=== PATIENT | female | born 1980 | race Caucasian/White ===

== ENCOUNTER 2016-12-02 08:00 | Emergency (ER) | payer OTHER ==
[~2016-12-02] VITALS: Ht 175.3 cm; Wt 113.0 kg
[~2016-12-02 08:00] MED LIST: IBUP-1542 PO
[2016-12-02 08:08] VITALS: Ht 175.3 cm; Wt 113.0 kg
--- NOTE | 2016-12-02 08:59 | ERD ---
ER Documentation Chief Complaint Date/Time DATE: 12/02/16 TIME: 08:54 Chief Complaint LT 2ND FINGER LACERATION ON KNUCKLE SUSTAINED WHILE CUTTING BREAD THIS AM HPI 36-year-old female coming in complaining of a laceration to her left index finger over the dorsal aspect of PIP joint. Patient states she was cutting bread when she cut her skin with knife. Does not recall her last tetanus shot. Right-hand dominant. Denies any numbness or tingling to the distal tip. Is able to move her fingers without difficulty. ROS All systems reviewed and are negative except as per history of present illness. Medications Home Meds Active Scripts Ibuprofen* (Motrin*) 600 Mg Tab, 600 MG PO Q6, #14 TAB Prov:AYAH JOYA MD 11/19/15 Allergies Allergies: Coded Allergies: No Known Allergy (Unverified , 11/19/15) PMhx/Soc Medical and Surgical Hx: pt denies Medical Hx, pt denies Surgical Hx Hx Alcohol Use: Yes Hx Substance Use: No Hx Tobacco Use: No Physical Exam Vitals Vital Signs Date Time Temp Pulse Resp B/P Pulse Ox O2 Delivery O2 Flow Rate FiO2 12/02/16 08:08 98.0 89 16 142/79 98 Physical Exam GENERAL: The patient is well-appearing, well-nourished, in no acute distress CHEST: Clear to auscultation bilaterally. There are no rales, wheezes or rhonchi. HEART: Regular rate and rhythm. No murmurs, clicks, rubs or gallops. No S3 or S4. EXTREMITIES: Normal flexion extension at the DIP and PIP joint of the left index finger. NEUROLOGIC: Neuro intact to left index finger. Cap refill less than 2 seconds. SKIN: Superficial 2 mm x 2 mm skin avulsion over the left index finger proximal knuckle. No tendon or ligament injury. No active bleeding. No retained foreign body. Results 24 hrs Current Medications Medications (Trade) Dose Ordered Sig/Makayla Route PRN Reason Start Time Stop Time Status Last Admin Dose Admin Diphtheria/ Tetanus/Acell Pertussis (Adacel) 0.5 ml ONCE ONCE IM* 12/02/16 09:00 12/02/16 09:01 12/02/16 08:54 Procedures/MDM ER course: Skin avulsion cleaned with copious amounts of normal saline. Dermabond applied to skin avulsion. Band-Aid applied after Dermabond had dried. Tdap given in ED. MDM: I have low suspicion for tendon or ligament injury. I have low suspicion for retained foreign body. There is no indication for suturing as the skin has been completely avulsed. I have low suspicion for vascular injury. Patient's exam is not concerning. Patient is told to allow Dermabond to fall off on its own and once Dermabond has fallen off to apply bacitracin ointment and Band- Aid. Patient received tetanus shot in the ED today. Patient was discharged with strict ER precautions and recommended to follow-up with primary care physician within 1-2 days for close evaluation. Departure Diagnosis: Primary Impression: Skin avulsion Condition: Stable Patient Instructions: Skin Avulsion Additional Instructions: FOLLOW UP WITH YOUR PRIMARY CARE PHYSICIAN TOMORROW.Return to this facility if you are not improving as expected. YARI HUERTA PA-C Dec 02, 2016 08:59
[2016-12-02] MEDS ORDERED: DIPHTH/TET/ACEL PERTUSS (ADULT) 0.5 ML VIAL IM* ONE (09:00)
== END 2016-12-02 09:00 | disposition home or self-care (01) ==
LOC: FTE 08:00
DX: S61.211A Laceration without foreign body of left index finger without damage to nail, initial encounter (principal); W26.0XXA Contact with knife, initial encounter; Y92.9 Unspecified place or not applicable; Z23 Encounter for immunization
CPT/HCPCS: 12001; 90471; 90715; Z7502; Z7610